=== PATIENT | male | born 1950 | race Caucasian/White ===

== ENCOUNTER 2018-03-08 15:54 | Inpatient (IN) | payer OTHER, MEDICAID, MEDICARE ==
[2018-03-08] VITALS (11 sets, daily range): BP systolic 118–155; BP diastolic 65–97; PULSE 85–148; RESP 14–24; TEMP 98.5; O2SAT 93–99
[~2018-03-08] VITALS: Ht 170.2 cm; Wt 80.1 kg
--- NOTE | 2018-03-08 16:21 | PD ---
HPI Chief Complaint: Cardiac Complaint Time Seen by Provider: 16:12 Travel History International Travel<30 days: No Contact w/Intl Traveler<30days: No Traveled to known affect area: No History of Present Illness HPI Patient is a 67-year-old male who presents emergency department for evaluation of elevated heart rate. Patient has a history of hemodialysis dependence was at hemodialysis today and they noticed he had an elevated heart rate, they referred him here. The patient adamant that he does not have a history of arrhythmia atrial fibrillation he is not anticoagulated. He does however take Cardizem. Denies any chest pain shortness of breath abdominal pain nausea vomiting. States symptoms are moderate, started today, context and associated signs and symptoms as above. PFSH Past Medical History Narrative Medical End-stage renal disease, dialysis dependence, diabetes, depression, hypercholesterolemia Past Surgical History Narrative Surgical AV fistula Social History Alcohol Use: No Tobacco Use: No Allergies-Medications (Allergen,Severity, Reaction): Coded Allergies: iron (Verified Allergy, Unknown, 03/08/18) Review of Systems Except as stated in HPI: all other systems reviewed are Neg Physical Exam Narrative GENERAL: Well-developed well-nourished no obvious distress. SKIN: Focused skin assessment warm/dry. Right sided dialysis catheter subclavian clean dry and intact peer HEAD: Atraumatic. Normocephalic. EYES: Pupils equal and round. No scleral icterus. No injection or drainage. ENT: No nasal bleeding or discharge. Mucous membranes pink and moist. NECK: Trachea midline. No JVD. CARDIOVASCULAR: Irregularly irregular with tachycardic with heart rates as high as 150. No murmur appreciated. RESPIRATORY: No accessory muscle use. Clear to auscultation. Breath sounds equal bilaterally. GASTROINTESTINAL: Abdomen soft, non-tender, nondistended. Hepatic and splenic margins not palpable. MUSCULOSKELETAL: No obvious deformities. No clubbing. No cyanosis. No edema. NEUROLOGICAL: Awake and alert. No obvious cranial nerve deficits. Motor grossly within normal limits. Normal speech. PSYCHIATRIC: Appropriate mood and affect; insight and judgment normal. Data Data Last Documented VS Vital Signs Date Time Temp Pulse Resp B/P (MAP) Pulse Ox O2 Delivery O2 Flow Rate FiO2 03/08/18 17:30 108 14 139/65 (89) 98 Nasal Cannula 2.00 Orders Orders Electrocardiogram (03/08/18 16:16) Basic Metabolic Panel (Bmp) (03/08/18 16:16) Ckmb (Isoenzyme) Profile (03/08/18 16:16) Complete Blood Count With Diff (03/08/18 16:16) Magnesium (Mg) (03/08/18 16:16) Prothrombin Time / Inr (Pt) (03/08/18 16:16) Act Partial Throm Time (Ptt) (03/08/18 16:16) Troponin I (03/08/18 16:16) Ecg Monitoring (03/08/18 16:16) Bilateral Bp Monitoring (03/08/18 16:16) Iv Access Insert/Monitor (03/08/18 16:16) Oximetry (03/08/18 16:16) Oxygen Administration (03/08/18 16:16) Chest, Pa & Lat (03/08/18 16:16) Diltiazem (Cardizem) (03/08/18 16:30) CKMB (03/08/18 16:20) CKMB% (03/08/18 16:20) Metoprolol Tartrate Inj (Lopressor Inj) (03/08/18 17:45) Admit Order (Ed Use Only) (03/08/18 ) Metoprolol Tartrate (Lopressor) (03/08/18 21:00) Diltiazem Cd (Cardizem Cd) (03/09/18 09:00) Aspirin Ec (Ecotrin Ec) (03/09/18 09:00) Pravastatin (Pravachol) (03/09/18 09:00) Furosemide (Lasix) (03/09/18 09:00) Place In Observation (03/08/18 ) Vital Signs (Adult) Q4H (03/08/18 19:11) Activity Oob With Assistance (03/08/18 19:11) Auxiliary Equipment Tender / Telemetry .CONTINUOUS (03/08/18 19:11) Intake + Output [place].QSHIFT (03/08/18 19:11) Diet Heart Healthy (03/09/18 Breakfast) Sodium Chloride 0.9% Flush (Ns Flush) (03/08/18 19:15) Sodium Chloride 0.9% Flush (Ns Flush) (03/08/18 21:00) Metoclopramide Inj (Reglan Inj) (03/08/18 19:15) Comprehensive Metabolic Panel (03/09/18 06:00) Complete Blood Count With Diff (03/09/18 06:00) Troponin I (03/09/18 00:00) Troponin I (03/09/18 06:00) Pt Request For Service (03/08/18 19:11) Case Management Consult (03/08/18 19:11) Heparin Inj (Heparin Inj) (03/09/18 09:00) Acetaminophen (Tylenol) (03/08/18 19:15) Acetamin-Hydrocod 325-5 Mg ([place] 5-325 (03/08/18 19:15) Morphine Inj (Morphine Inj) (03/08/18 19:15) Docusate Sodium-Senna (Lilli-Colace) (03/08/18 21:00) Magnesium Hydroxide Liq (Milk Of Magnesi (03/08/18 19:15) Sennosides (Senokot) (03/08/18 19:15) Bisacodyl Supp (Dulcolax Supp) (03/08/18 19:15) Lactulose Liq (Lactulose Liq) (03/08/18 19:15) Echo 2d Comp With Doppler (03/08/18 ) Consult Cardiology (03/08/18 ) Labs Laboratory Tests Test 03/08/18 16:20 White Blood Count 7.9 TH/MM3 Red Blood Count 3.75 MIL/MM3 Hemoglobin 11.0 GM/DL Hematocrit 33.6 % Mean Corpuscular Volume 89.7 FL Mean Corpuscular Hemoglobin 29.3 PG Mean Corpuscular Hemoglobin Concent 32.7 % Red Cell Distribution Width 19.6 % Platelet Count 244 TH/MM3 Mean Platelet Volume 7.6 FL Neutrophils (%) (Auto) 73.6 % Lymphocytes (%) (Auto) 10.2 % Monocytes (%) (Auto) 12.4 % Eosinophils (%) (Auto) 3.3 % Basophils (%) (Auto) 0.5 % Neutrophils # (Auto) 5.8 TH/MM3 Lymphocytes # (Auto) 0.8 TH/MM3 Monocytes # (Auto) 1.0 TH/MM3 Eosinophils # (Auto) 0.3 TH/MM3 Basophils # (Auto) 0.0 TH/MM3 CBC Comment DIFF FINAL Differential Comment Prothrombin Time 11.4 SEC Prothromb Time International Ratio 1.1 RATIO Activated Partial Thromboplast Time 26.9 SEC Blood Urea Nitrogen 38 MG/DL Creatinine 2.99 MG/DL Random Glucose 171 MG/DL Calcium Level 8.3 MG/DL Magnesium Level 1.8 MG/DL Sodium Level 136 MEQ/L Potassium Level 4.0 MEQ/L Chloride Level 98 MEQ/L Carbon Dioxide Level 28.4 MEQ/L Anion Gap 10 MEQ/L Estimat Glomerular Filtration Rate 21 ML/MIN Total Creatine Kinase 158 U/L Creatine Kinase MB 11.7 NG/ML Troponin I 0.12 NG/ML [facility] Medical Decision Making Medical Screen Exam Complete: Yes Emergency Medical Condition: Yes Interpretation(s) EKG shows atrial fibrillation with RVR with a heart rate of 131, borderline right axis deviation, no concerning ST segment changes seen. This an abnormal EKG. Differential Diagnosis Atrial fibrillation, ACS, VA, electrolyte abnormality. Narrative Course Patient room to the emergency department, a dose of p.o. Cardizem was given his IV Cardizem is currently out of stock on nationwide shortage, this had minimal effect in controlling his heart rate, dose of IV metoprolol was given which did have fair success controlling his heart rate in the low 100s and high 90s. He has not had any chest pain however does have a slightly positive troponin of 0.12 without previous comparison. Patient tells me he does not follow with a singer back tender and had a last stress test about 2 years ago. Presumably this is new onset atrial fibrillation according the patient however he does have Cardizem on his medication list and I doubt the accuracy of this history. Still for his safety he will be admitted under observation status for Dr. Hoffman for further workup and monitoring. Patient was discussed with Dr. Hoffman and she agreed. Diagnosis Primary Impression: Atrial fibrillation with RVR Admitting Information Admitting Physician Requests: Observation Condition: Stable Erik Peraza MD March 08, 2018 16:21
[2018-03-08] MEDS ORDERED: DILTIAZEM HCL 30 MG TAB PO ONE (16:30)
[2018-03-08 17:03] LABS: AUTOMATED NEUTROPHIL # 5.8 TH/MM3 (1.8-7.7); BASOPHIL % 0.5 % (0.0-2.0); EOSINOPHIL # 0.3 TH/MM3 (0-0.4); EOSINOPHIL % 3.3 % (0.0-4.0); HEMATOCRIT 33.6 % (39.0-51.0); LYMPH % 10.2 % (9.0-44.0); LYMPHOCYTE # 0.8 TH/MM3 (1.0-4.8); MEAN CELL VOLUME 89.7 FL (80.0-100.0); MEAN CORPUSCULAR HEMOGLOBIN 29.3 PG (27.0-34.0); MEAN CORPUSCULAR HGB CONC 32.7 % (32.0-36.0); MEAN PLATELET VOLUME 7.6 FL (7.0-11.0); MONO % 12.4 % (0.0-8.0); NEUT % 73.6 % (16.0-70.0); PLATELET COUNT 244 TH/MM3 (150-450); RED BLOOD COUNT 3.75 MIL/MM3 (4.50-5.90); RED CELL DISTRIBUTION WIDTH 19.6 % (11.6-17.2); WHITE BLOOD COUNT 7.9 TH/MM3 (4.0-11.0)
[2018-03-08 17:12] LABS: INTERNATIONAL NORMALIZED RATIO 1.1 RATIO; PROTHROMBIN TIME - PATIENT 11.4 SEC (9.8-11.6)
--- NOTE | 2018-03-08 17:18 | RADRPT ---
EXAM DATE/TIME: 03/08/2018 17:06 [place] COMPARISON: No previous studies available for comparison. INDICATIONS : Rapid heart rate. MEDICAL HISTORY : Dialysis SURGICAL HISTORY : None. ENCOUNTER: Initial ACUITY: 1 day PAIN SCORE: 6/10 LOCATION: Bilateral chest FINDINGS: PA and lateral views of the chest demonstrate cardiomegaly with increase in pulmonary vascularity. Ri ght pleural effusion. Right-sided vascular catheter with tip in the right atrium. Osseous structures are intact. CONCLUSION: 1. Cardiomegaly with increase in pulmonary vascularity. 2. Right pleural effusion. Elias Jj MD on March 08, 2018 at 17:15 Board Certified Radiologist. This report was verified electronically.
[2018-03-08 17:22] LABS: BICARBONATE 28.4 MEQ/L (21.0-32.0); BLOOD UREA NITROGEN 38 MG/DL (7-18); CALCIUM 8.3 MG/DL (8.5-10.1); CHLORIDE 98 MEQ/L (98-107); CREATININE 2.99 MG/DL (0.60-1.30); GLOMERULAR FILTRATION RATE 21 ML/MIN (>89); GLUCOSE,RANDOM 171 MG/DL (74-106); MAGNESIUM 1.8 MG/DL (1.5-2.5); SODIUM (NA) 136 MEQ/L (136-145)
[2018-03-08 17:26] LABS: TROPONIN I 0.12 NG/ML (0.02-0.05)
[2018-03-08] MEDS ORDERED: METOPROLOL TARTRATE 5 MG/5 ML VIAL IV PUSH ONE (17:45)
[2018-03-08] MEDS ORDERED: BISACODYL 10 MG SUPP RECTAL PRN (19:15)
[2018-03-08] MEDS ORDERED: SODIUM CHLORIDE 0.9% FLUSH 10 ML FLUSH IV FLUSH PRN (19:15)
[2018-03-08] MEDS ORDERED: ACETAMINOPHEN/HYDROcodone 325 MG/5 MG TAB PO PRN (19:15)
[2018-03-08] MEDS ORDERED: SENNOSIDES 8.6 MG TAB PO PRN (19:15)
[2018-03-08] MEDS ORDERED: METOCLOPRAMIDE HCL 10 MG/2 ML VIAL IV PUSH PRN (19:15)
[2018-03-08] MEDS ORDERED: LACTULOSE SYRUP 20 GM/30 ML CUP PO PRN (19:15)
[2018-03-08] MEDS ORDERED: MAGNESIUM HYDROXIDE SUSP 30 ML CUP PO PRN (19:15)
[2018-03-08] MEDS ORDERED: ACETAMINOPHEN 325 MG TAB PO PRN (19:15)
--- NOTE | 2018-03-08 19:26 | HHI.HP ---
[facility] No Primary Care Physician Admission Diagnosis Afib Rvr, elevated troponin. Diagnoses: (1) Atrial fibrillation with RVR Diagnosis: Principal (2) Elevated troponin Diagnosis: Principal (3) ESRD on hemodialysis Diagnosis: Principal Travel History International Travel<30 Days: No Contact w/Intl Traveler <30 Da: No Traveled to Known Affected Are: No History of Present Illness This is a 67-year-old male with a PMH of HTN, ESRD on HD T/Th/Sat and h/o A-fib who was sent to the ER from Dialysis for HR 140-150's w/ associated SOB. No c/ o chest pain. Upon arrival, noted to be in A-fib w/ RVR. Pt reports no previous h/o A-fib, however per review of medication list pt on Cardizem and Metoprolol at home. BP 143/85, HR 148, O2 sat 95% RA. CBC essentially unremarkable. Creatinine 2.99, no previous labs for comparison. Troponin 0.12. INR 1.1. CXR with cardiomegaly and increased pulmonary vascularity, right pleural effusion. S/p Cardizem 30mg po and Lopressor 5mg IV in ER, HR currently 90's. Review of Systems Except as stated in HPI: all other systems reviewed are Neg ROS: 14 point review of systems otherwise negative. Past Family Social History Past Medical History PMH: HTN, ESRD on HD T/Th/Sat and h/o A-fib Past Surgical History PAST SURGICAL HISTORY: AV Shunt, Right Foot Toe Amputation Allergies: Coded Allergies: iron (Verified Allergy, Unknown, 03/08/18) Family History PAST FAMILY HISTORY: Reviewed. No h/o DM or CAD Social History PAST SOCIAL HISTORY: Negative for alcohol, tobacco or drugs per Physical Exam Vital Signs Vital Signs Date Time Temp Pulse Resp B/P (MAP) Pulse Ox O2 Delivery O2 Flow Rate FiO2 03/08/18 17:30 108 14 139/65 (89) 98 Nasal Cannula 2.00 03/08/18 17:00 20 142/87 (105) 98 Nasal Cannula 2.00 03/08/18 16:33 126 24 155/97 (116) 99 Nasal Cannula 2.00 03/08/18 16:27 143/85 (104) 03/08/18 16:25 93 Room Air 03/08/18 16:25 Nasal Cannula 2.00 03/08/18 16:12 148 20 143/85 (104) 95 Physical Exam PE: GENERAL: Middle-aged white male in no acute distress. HEENT: PERRLA, EOMI. No scleral icterus or conjunctival pallor. No lid lag or facial droop. CARDIOVASCULAR: Irregularly irregular, and A. fib, HR 90s. No obvious murmurs to auscultation. No chest tenderness to palpation. RESPIRATORY: No obvious rhonchi or wheezing. Clear to auscultation. Breath sounds equal bilaterally. GASTROINTESTINAL: Abdomen soft, non-tender, nondistended. BS normal. MUSCULOSKELETAL: Extremities without clubbing, cyanosis, or edema. No obvious deformities. NEUROLOGICAL: Awake, alert. No focal neurologic deficits. Moving both upper and lower extremities spontaneously. Laboratory Laboratory Tests Test 03/08/18 16:20 White Blood Count 7.9 Red Blood Count 3.75 Hemoglobin 11.0 Hematocrit 33.6 Mean Corpuscular Volume 89.7 Mean Corpuscular Hemoglobin 29.3 Mean Corpuscular Hemoglobin Concent 32.7 Red Cell Distribution Width 19.6 Platelet Count 244 Mean Platelet Volume 7.6 Neutrophils (%) (Auto) 73.6 Lymphocytes (%) (Auto) 10.2 Monocytes (%) (Auto) 12.4 Eosinophils (%) (Auto) 3.3 Basophils (%) (Auto) 0.5 Neutrophils # (Auto) 5.8 Lymphocytes # (Auto) 0.8 Monocytes # (Auto) 1.0 Eosinophils # (Auto) 0.3 Basophils # (Auto) 0.0 CBC Comment DIFF FINAL Differential Comment Prothrombin Time 11.4 Prothromb Time International Ratio 1.1 Activated Partial Thromboplast Time 26.9 Blood Urea Nitrogen 38 Creatinine 2.99 Random Glucose 171 Calcium Level 8.3 Magnesium Level 1.8 Sodium Level 136 Potassium Level 4.0 Chloride Level 98 Carbon Dioxide Level 28.4 Anion Gap 10 Estimat Glomerular Filtration Rate 21 Total Creatine Kinase 158 Creatine Kinase MB 11.7 Troponin I 0.12 Result Diagram: 03/08/18 1620 03/08/18 1620 Caprini VTE Risk Assessment Caprini VTE Risk Assessment: No/Low Risk (score <= 1) Caprini Risk Assessment Model Point Value = 1 Point Value = 2 Point Value = 3 Point Value = 5 Age 41-60 Minor surgery BMI > 25 kg/m2 Swollen legs Varicose veins or History of unexplained or recurrent spontaneous Oral contraceptives or hormone replacement Sepsis (< 1 month) Serious lung disease, including pneumonia (< 1 month) Abnormal pulmonary function Acute myocardial infarction Congestive heart failure (< 1 month) History of inflammatory bowel disease Medical patient at bed rest Age 61-74 Arthroscopic surgery Major open surgery (> 45 min) Laparoscopic surgery (> 45 min) Malignancy Confined to bed (> 72 hours) Immobilizing plaster cast Central venous access Age >= 75 History of VTE Family history of VTE Factor V Leiden Prothrombin [id number] Lupus anticoagulant Anticardiolipin antibodies Elevated serum homocysteine Heparin-induced thrombocytopenia Other congenital or acquired thrombophilia Stroke (< 1 month) Elective arthroplasty Hip, pelvis, or leg fracture Acute spinal cord injury (< 1 month) Prophylaxis Regimen Total Risk Factor Score Risk Level Prophylaxis Regimen 0-1 Low Early ambulation 2 Moderate Order ONE of the following: *Sequential Compression Device (SCD) *Heparin 5000 units SQ BID 3-4 Higher Order ONE of the following medications: *Heparin 5000 units SQ TID *Enoxaparin/Lovenox 40 mg SQ daily (WT < 150 kg, CrCl > 30 mL/min) *Enoxaparin/Lovenox 30 mg SQ daily (WT < 150 kg, CrCl > 10-29 mL/min) *Enoxaparin/Lovenox 30 mg SQ BID (WT < 150 kg, CrCl > 30 mL/min) AND/OR *Sequential Compression Device (SCD) 5 or more Highest Order ONE of the following medications: *Heparin 5000 units SQ TID (Preferred with Epidurals) *Enoxaparin/Lovenox 40 mg SQ daily (WT < 150 kg, CrCl > 30 mL/min) *Enoxaparin/Lovenox 30 mg SQ daily (WT < 150 kg, CrCl > 10-29 mL/min) *Enoxaparin/Lovenox 30 mg SQ BID (WT < 150 kg, CrCl > 30 mL/min) AND *Sequential Compression Device (SCD) Assessment and Plan Problem List: (1) Atrial fibrillation with RVR ICD Code: I48.91 - Unspecified atrial fibrillation Status: Acute (2) Elevated troponin ICD Code: R74.8 - Abnormal levels of other serum enzymes (3) ESRD on hemodialysis ICD Code: N18.6 - End stage renal disease; Z99.2 - Dependence on renal dialysis Assessment and Plan A/P: 1. A-fib w/ RVR: apparent h/o A-fib, however pt unaware of diagnosis, on Cardizem PO and Metoprolol PO per review of medication list, HR 150's while in dialysis, s/p Cardizem 30mg po and Lopressor 5mg IV in ER, HR now 90's. Admit for Observation, telemetry, continue home Cardizem 120mg po qd and Metoprolol 25mg bid, monitor BP. Check Echo to eval for valvular abnormalities. Cardio Consult for further evaluation/recommendations. 2. Elevated Trop: likely secondary to renal dysfunction in combination w/ tachyarrhythmia, no c/o chest pain, no evidence of ischemia. Check serial cardiac enzymes, check Hgb A1c, check lipid profile, start ASA, Statin, resume home Metoprolol. Cardio eval as above. 3. ESRD on HD: T//Sat, follows w/ Dr. Ch, had approx 1L fluid taken off today but HD incomplete per report, will consult Nephrology to resume HD as needed. 4. DVT Prophylaxis: Heparin sq 5. Social work for d/c planning as needed. 6. Case discussed w/ ER physician at length, labs/records/imaging reviewed by me. Jackie Hoffman MD March 08, 2018 19:25
[2018-03-08] MEDS ORDERED: MORPHINE SULFATE 4 MG/ML INJ IV PRN (19:45)
[2018-03-08] MEDS ORDERED: LORA-650 PO (20:59)
[2018-03-08] MEDS ORDERED: LAC-LOT2 (20:59)
[2018-03-08] MEDS ORDERED: NEPHTAB3 PO (20:59)
[2018-03-08] MEDS ORDERED: TYLETAB34 PO (20:59)
[2018-03-08] MEDS ORDERED: ATOR40TA16 PO (20:59)
[2018-03-08] MEDS ORDERED: ASCO500C (20:59)
[2018-03-08] MEDS ORDERED: SEVE800 PO (20:59)
[2018-03-08] MEDS ORDERED: TYLE325T PO (20:59)
[2018-03-08] MEDS ORDERED: CART120C PO (20:59)
[2018-03-08] MEDS ORDERED: VENTAER INH (20:59)
[2018-03-08] MEDS ORDERED: MEGE40SU PO (20:59)
[2018-03-08] MEDS ORDERED: IPRASOL INH ×2 (20:59)
[2018-03-08] MEDS ORDERED: MILKSUS PO (20:59)
[2018-03-08] MEDS ORDERED: NOVOLOGP2 SQ (20:59)
[2018-03-08] MEDS ORDERED: GLYC3350 (20:59)
[2018-03-08] MEDS ORDERED: LEVEMIR SQ ×2 (20:59)
[2018-03-08] MEDS ORDERED: TRAZ100T10 PO (20:59)
[2018-03-08] MEDS ORDERED: TAMS5CAP PO (20:59)
[2018-03-08] MEDS ORDERED: BUME1TAB PO (20:59)
[2018-03-08] MEDS: DOCUSATE SODIUM 50 MG/SENNA 8.6 MG TAB PO SCH (21:00)
[2018-03-08] MEDS: METOPROLOL TARTRATE 25 MG TAB PO SCH (21:00)
[2018-03-08] MEDS ORDERED: ACETAMINOPHEN/CODEINE 300 MG/30 MG TAB PO PRN (22:45)
[2018-03-08] MEDS ORDERED: ATORVASTATIN 40 MG TAB PO SCH (22:45)
[2018-03-08] MEDS ORDERED: DEXTROSE 50% IN WATER 50 ML VIAL(D50) IV PUSH PRN (23:00)
[2018-03-08] MEDS ORDERED: GLUCAGON 1 MG/ML VIAL OTHER PRN (23:00)
[2018-03-08] MEDS: traZODone HCL 100 MG TAB PO SCH (23:52)
[2018-03-08] MEDS: TAMSULOSIN HCL 0.4 MG CAP PO SCH (23:53)
[2018-03-08] MEDS: SODIUM CHLORIDE 0.9% FLUSH 10 ML FLUSH IV FLUSH SCH (23:54)
[2018-03-09] VITALS (10 sets, daily range): BP systolic 108–124; BP diastolic 57–65; PULSE 78–99; RESP 17–20; TEMP 98.1–99.2; O2SAT 92–96
[2018-03-09 05:52] LABS: ALBUMIN 2.1 GM/DL (3.4-5.0); ALKALINE PHOSPHATASE 45 U/L (45-117); ALT (GPT) 20 U/L (12-78); AST (GOT) 23 U/L (15-37); BICARBONATE 28.1 MEQ/L (21.0-32.0); BLOOD UREA NITROGEN 51 MG/DL (7-18); CHLORIDE 100 MEQ/L (98-107); CHOLESTEROL 55 MG/DL (120-200); CHOLESTEROL/ HDL RATIO 2.21 RATIO; GLOMERULAR FILTRATION RATE 15 ML/MIN (>89); GLUCOSE,RANDOM 137 MG/DL (74-106); HDL CHOLESTEROL 24.8 MG/DL (40.0-60.0); LDL CHOLESTEROL 15 MG/DL (0-99); SODIUM (NA) 139 MEQ/L (136-145); TOTAL BILIRUBIN ADULT 0.3 MG/DL (0.2-1.0); TOTAL PROTEIN 6.4 GM/DL (6.4-8.2); TRIGLYCERIDES 77 MG/DL (42-150)
[2018-03-09 05:55] LABS: TROPONIN I 0.89 NG/ML (0.02-0.05)
[2018-03-09 07:12] LABS: AUTOMATED NEUTROPHIL # 4.3 TH/MM3 (1.8-7.7); BASOPHIL # 0.1 TH/MM3 (0-0.2); BASOPHIL % 0.8 % (0.0-2.0); EOSINOPHIL # 0.3 TH/MM3 (0-0.4); EOSINOPHIL % 4.7 % (0.0-4.0); HEMATOCRIT 29.2 % (39.0-51.0); HEMOGLOBIN 9.6 GM/DL (13.0-17.0); LYMPHOCYTE # 0.9 TH/MM3 (1.0-4.8); MEAN CELL VOLUME 89.1 FL (80.0-100.0); MEAN CORPUSCULAR HEMOGLOBIN 29.3 PG (27.0-34.0); MEAN PLATELET VOLUME 7.5 FL (7.0-11.0); MONO % 14.3 % (0.0-8.0); MONOCYTE # 0.9 TH/MM3 (0-0.9); NEUT % 66.2 % (16.0-70.0); PLATELET COUNT 227 TH/MM3 (150-450); RED BLOOD COUNT 3.28 MIL/MM3 (4.50-5.90); RED CELL DISTRIBUTION WIDTH 19.3 % (11.6-17.2); WHITE BLOOD COUNT 6.5 TH/MM3 (4.0-11.0)
[2018-03-09] MEDS: INSULIN ASPART SUPPLEMENTAL SCALE SQ SCH ×4 (08:00→22:19)
[2018-03-09] MEDS: MEGESTROL ACETATE SUSP 400 MG/10 ML CUP PO SCH (08:15)
[2018-03-09] MEDS: DILTIAZEM-CD 120 MG CAP ER PO SCH (08:16)
[2018-03-09] MEDS: DOCUSATE SODIUM 50 MG/SENNA 8.6 MG TAB PO SCH ×2 (08:16→21:00)
[2018-03-09] MEDS: LORATADINE 10 MG TAB PO SCH (08:16)
[2018-03-09] MEDS: FUROSEMIDE 40 MG TAB PO SCH (08:17)
[2018-03-09] MEDS: PRAVASTATIN SOD 40 MG TAB PO SCH (08:17)
[2018-03-09] MEDS: METOPROLOL TARTRATE 25 MG TAB PO SCH ×2 (08:17→22:08)
[2018-03-09] MEDS: ASPIRIN EC 81 MG TABEC PO SCH (08:18)
[2018-03-09] MEDS: HEPARIN SODIUM - SQ 10,000 UNITS/ML VIAL SQ SCH ×2 (08:18→22:09)
[2018-03-09] MEDS: VITAMIN B CMPLX/VITC/FOLIC AC CAP PO SCH (08:20)
[2018-03-09] MEDS: SODIUM CHLORIDE 0.9% FLUSH 10 ML FLUSH IV FLUSH SCH ×2 (08:21→22:08)
[2018-03-09] MEDS: INSULIN DETEMIR 100 UNITS/ML VIAL SQ SCH ×2 (08:28→22:15)
[2018-03-09] MEDS: SEVELAMER CARBONATE 800 MG TAB PO SCH ×3 (08:28→16:21)
--- NOTE | 2018-03-09 09:03 | HHI.PR ---
Subjective Remarks He is at the margin of the bed. Some sob. No chest pain . No lightheadedness. No n/v/d/c. Objective Vitals Vital Signs Date Time Temp Pulse Resp B/P (MAP) Pulse Ox O2 Delivery O2 Flow Rate FiO2 03/09/18 06:16 Room Air 03/09/18 06:16 98.5 78 18 124/62 (82) 96 03/09/18 03:51 85 03/09/18 00:01 98.6 89 19 122/65 (84) 96 03/09/18 00:01 Room Air 03/08/18 23:39 95 03/08/18 21:37 98 03/08/18 20:59 03/08/18 20:01 Room Air 03/08/18 20:01 98.5 86 19 118/82 (94) 97 03/08/18 19:59 96 15 129/66 (87) 97 Nasal Cannula 2.00 03/08/18 17:30 108 14 139/65 (89) 98 Nasal Cannula 2.00 03/08/18 17:00 20 142/87 (105) 98 Nasal Cannula 2.00 03/08/18 16:33 126 24 155/97 (116) 99 Nasal Cannula 2.00 03/08/18 16:27 143/85 (104) 03/08/18 16:25 93 Room Air 03/08/18 16:25 Nasal Cannula 2.00 03/08/18 16:12 148 20 143/85 (104) 95 I/O 03/08/18 03/08/18 03/08/18 03/09/18 03/09/18 03/09/18 07:00 15:00 23:00 07:00 15:00 23:00 Intake Total 480 ml Output Total 0 ml Balance 480 ml Intake Oral 480 ml Output Urine Total 0 ml # Bowel Movements 0 Result Diagram: 03/09/18 0435 03/09/18 0435 Imaging Last Impressions Chest X-Ray 03/08/18 1616 Signed Impressions: Service Date/Time: Thursday, March 08, 2018 17:06 - CONCLUSION: 1. Cardiomegaly with increase in pulmonary vascularity. 2. Right pleural effusion. Elias Jj MD Objective Remarks GENERAL: Pleasant middle-aged white male in no acute distress. HEENT: PERRLA, EOMI. No scleral icterus or conjunctival pallor. No lid lag or facial droop. CARDIOVASCULAR: Irregularly irregular. No murmurs. No chest tenderness to palpation. RESPIRATORY: Clear to auscultation. Breath sounds equal bilaterally. GASTROINTESTINAL: Abdomen soft, non-tender, nondistended. BS normal x4Q. NEUROLOGICAL: Awake, alert. No focal neurologic deficits. Normal speech. A/P Problem List: (1) Atrial fibrillation with RVR ICD Code: I48.91 - Unspecified atrial fibrillation Status: Acute (2) Elevated troponin ICD Code: R74.8 - Abnormal levels of other serum enzymes (3) ESRD on hemodialysis ICD Code: N18.6 - End stage renal disease; Z99.2 - Dependence on renal dialysis Assessment and Plan A-fib w/ RVR: apparent h/o A-fib, however pt unaware of diagnosis, on Cardizem PO and Metoprolol PO per review of medication list, HR 150's while in dialysis Received Cardizem 30mg po and Lopressor 5mg IV in ER, HR better controlled. Monitor on telemetry Continue home Cardizem 120mg po qd and Metoprolol 25mg bid, monitor BP. 2D Echo to eval for valvular abnormalities. Cardio Consult for further evaluation/recommendations. Elevated Trop: likely secondary to renal dysfunction in combination with tachyarrhythmia, no c/o chest pain, no evidence of ischemia. Check serial cardiac enzymes, check Hgb A1c, check lipid profile Continue ASA, Statin, Metoprolol. Cardiology consulted ESRD on HD: T//Sat, follows w/ Dr. Ch, had approx 1L fluid taken off today but HD incomplete per report, will consult Nephrology to resume HD as needed. DVT Prophylaxis: Heparin sq CM consulted for DC planning as needed. Discussed with the patient, nurse Debi Mosqueda MD March 09, 2018 09:03
[2018-03-09] MEDS ORDERED: SODIUM CHLOR 0.9% 1000 ML INJ 1,000 ML OTHER PRN ×2 (10:48)
[2018-03-09] MEDS ORDERED: SODIUM CHLOR 0.9% 1000 ML INJ 1,000 ML IV PRN (10:48)
[2018-03-09] MEDS ORDERED: diphenhydrAMINE HCL 25 MG CAP PO PRN (11:00)
[2018-03-09] MEDS ORDERED: GELATIN 12 MM/7 MM FOAM TOP PRN (11:00)
[2018-03-09] MEDS ORDERED: NITROGLYCERIN 0.4 MG SL 25 TABS/BTL SL PRN (11:00)
[2018-03-09] MEDS ORDERED: MANNITOL 12.5 GM/50 ML VIAL IV PRN (11:00)
[2018-03-09] MEDS ORDERED: HEPARIN SODIUM - IV 10,000 UNITS/10 ML VIAL IV FLUSH PRN (11:00)
[2018-03-09] MEDS ORDERED: ACETAMINOPHEN 325 MG TAB PO PRN (11:00)
[2018-03-09] MEDS ORDERED: cloNIDine HCL 0.1 MG TAB PO PRN (11:00)
[2018-03-09] MEDS ORDERED: SODIUM CHLORIDE 0.9% FLUSH 10 ML FLUSH IV FLUSH PRN (11:00)
[2018-03-09] MEDS ORDERED: ALBUMIN 25% INJ 100 ML IV PRN (11:00)
[2018-03-09] MEDS ORDERED: ONDANSETRON ODT 4 MG TAB PO PRN (11:00)
[2018-03-09 11:30] LABS: HEMOGLOBIN A1C 6.4 % (4.3-6.0)
[2018-03-09] MEDS: GENTAMICIN SULFATE 20 MG/2 ML VIAL OTHER PRN (12:37)
[2018-03-09] MEDS: HEPARIN SODIUM - IV 10,000 UNITS/10 ML VIAL PRN (12:38)
--- NOTE | 2018-03-09 13:13 | MB ---
cc: Jerrell Newman MD DATE: 03/09/2018 REASON FOR CONSULTATION: End-stage renal disease management. HISTORY OF PRESENT ILLNESS: This is a 67-year-old male with a history of hypertension, ESRD, on hemodialysis, Tuesdays, , and Saturday. He is followed up with Dr. Ch as an outpatient. The patient also has a previous history of atrial fibrillation. The patient was apparently at his outpatient dialysis on Saturday when he developed a heart rate jumping up to the 140s and 150s with dyspnea. He received approximately 1 hour of dialysis at that time and had approximately 1 liter of fluid removed. The patient was brought to the emergency room for evaluation. Upon arrival, he was found to have atrial fibrillation with RVR and this was treated medically with Cardizem and Lopressor in the ER, his heart rate improved otherwise. The patient had some elevation in troponin with a troponin level up to 0.89 and he was admitted for further evaluation. Given that he had a partial hemodialysis treatment, I went ahead and ordered for hemodialysis today. The patient is resting comfortably and tolerating hemodialysis at this time. His electrolytes and volume status otherwise stable. Cardiology has been consulted for further evaluation of his atrial fibrillation as well as elevated troponins. The patient has no acute complaints at this time. REVIEW OF SYSTEMS: The patient had some initial shortness of breath and some initial chest pains, which have improved at this time. Otherwise, no dizziness or loss of consciousness. At this time, he is tolerating dialysis well. Review of systems otherwise negative. PAST MEDICAL HISTORY: Includes hypertension, ESRD, on hemodialysis, Tuesdays, , and Saturdays, history of atrial fibrillation. PAST SURGICAL HISTORY: Includes left upper extremity AV fistula created approximately 2-3 months ago. The patient with a current right IJ tunnel catheter. The patient with previous right foot amputation. ALLERGIES: IODINE ALLERGIES. FAMILY HISTORY: No history of diabetes or CAD. SOCIAL HISTORY: No alcohol, tobacco or drug use. PHYSICAL EXAMINATION: At the time of evaluation. VITAL SIGNS: Temperature 98.1, pulse 91, blood pressure 114/61, pulse oximetry 93%. NECK: Soft, supple, no lymphadenopathy. CARDIAC: Irregularly, irregular. No murmurs, rubs, gallops. LUNGS: Clear to auscultation. ABDOMEN: Soft, nontender, nondistended. EXTREMITIES: No edema. LABORATORY DATA: Sodium 139, potassium 4.6, chloride 100, bicarbonate 28.1, BUN 51, creatinine 4, glucose 137. Troponin 0.12, then 0.86 and 0.89, albumin 2.1. White count 6.5, hemoglobin 9.6, hematocrit 29.2 with a platelet count of 227. ASSESSMENT AND PLAN: 1. End-stage renal disease on hemodialysis. The patient is on dialysis, Tuesdays, and Saturdays and follows up as an outpatient with Dr. Ch. He had only a partial treatment of dialysis on Saturday when he was transferred to the hospital for atrial fibrillation with RVR. At this time, the patient is receiving dialysis today. He is tolerating dialysis well. His volume status and electrolytes are otherwise stable. We will do dialysis today and then plan for next dialysis on Saturday and continue with Saturday, , Saturday dialysis while here. Of note, the patient has a current right IJ tunnel catheter. He has a left upper extremity AV fistula with an excellent thrill. This looks like attempts have been made to start cannulation of the fistula at outpatient dialysis; however, while inpatient can use current right IJ tunnel catheter. Continue monitoring and protect left arm. 2. Atrial fibrillation with rapid ventricular response. The patient presented with apparent heart rate in the 140s to 150s. This was treated in the ER with Cardizem and Lopressor. At this time, he continues on p.o. medication with Cardizem and metoprolol. His heart rate has improved to the 90s. Cardiology has been consulted for further evaluation. In addition, the patient had some elevation in troponins. He has no active chest pain symptoms at this time. His troponin elevation may have been due to the RPR, however, continue followup with cardiology. 3. Hypertension. Blood pressure is stable. Continue with medications. MD MICHAEL Keane/MARLENE , 12:17 PM , 01:12 PM LAURA
--- NOTE | 2018-03-09 15:23 | MB ---
cc: Reji Fabian DO DATE: 03/09/2018 REASON FOR CONSULTATION: Atrial fibrillation with rapid ventricular response, elevated troponin. HISTORY OF PRESENT ILLNESS: Memo Perla is a pleasant 67-year-old male who presented to [facility] Emergency Room from dialysis due to atrial fibrillation with rapid ventricular response. He was getting his normal dialysis and he had this for about an hour and he was noted to be in atrial fibrillation with a heart rate of 140-150 beats per minute. Per the notes, he was short of breath, although he states that he had no chest pain or shortness of breath, but was somewhat lightheaded. Because of this, his dialysis was cut short, and he was brought to the emergency room for evaluation. While there, he was given Cardizem and Lopressor and his heart rate has since been controlled. He is just back from completing hemodialysis as he did not get full hemodialysis yesterday. He is currently sitting up in his chair with no chest pain, shortness of breath or palpitations. He does not believe he has a history of atrial fibrillation. Per the notes they feel that he should have a history of atrial fibrillation just because he is on Cardizem and metoprolol, but these might have been placed due to high blood pressure, so unknown at this time whether he did have a previous history of atrial fibrillation. PAST MEDICAL HISTORY: 1. Hypertension. 2. End-stage renal disease on hemodialysis Saturday, , Saturday. PAST SURGICAL HISTORY: 1. AV shunt. 2. Right foot toe amputation. ALLERGIES: IRON. MEDICATIONS: 1. Loratadine 10 mg Saturday, Saturday, Saturday. 2. DuoNeb every 6 hours. 3. Albuterol every 4-6 hours as needed for shortness of breath. 4. Flomax 0.4 mg every night. 5. Lipitor 40 mg every night. 6. Cartia XT 120 mg Saturday, , Saturday. 7. Tylenol with codeine every 4 hours as needed for pain. 8. Trazodone 100 mg every night. 9. Renagel 800 mg t.i.d. 10. ____ 2 mg every night. 11. NovoLog sliding scale. 12. Levemir 15 units every night. 13. Levemir 25 units with breakfast. 14. Megestrol 10 mL daily. FAMILY HISTORY: Denies premature coronary artery disease or sudden cardiac within the family. SOCIAL HISTORY: Denies tobacco, alcohol or drug abuse. REVIEW OF SYSTEMS: Fourteen systems were reviewed including osteopathic. Pertinent positives and negatives above, otherwise negative. PHYSICAL EXAMINATION: VITAL SIGNS: Temperature 98.0, heart rate 91, blood pressure 114/61, respirations 20, pulse oximetry 93% on 1 liter. GENERAL: The patient appears well in no acute distress, alert, awake and oriented x 3. HEENT: Extraocular muscles intact. Mucous membranes moist. NECK: Supple. No JVD at 45 degrees. No carotid bruits heard bilaterally. Carotid upstroke is brisk in nature. HEART: Irregularly irregular. Positive first and second heart sounds with no noted murmurs, gallops or rubs. LUNGS: Clear to auscultation bilaterally. No wheezes, rales or rhonchi. ABDOMEN: Soft, nontender, nondistended. No organomegaly noted. EXTREMITIES: Show no clubbing, cyanosis or edema. Femoral and distal pulses are intact bilaterally. NEUROLOGIC: No focal deficits. SKIN: Warm, dry and intact. OSTEOPATHIC: No kyphoscoliosis, lordosis or paraspinal tender points. LABORATORY DATA: Hemoglobin 9.6, hematocrit 29.2, platelets 227. Potassium 4.0, BUN 51, creatinine 4.0. Troponin 0.89. Electrocardiogram (03/08/2018 at 1625): Atrial fibrillation with rapid ventricular response, borderline right axis deviation, incomplete right bundle branch block, nonspecific ST-T wave changes. IMPRESSION: 1. Atrial fibrillation with rapid ventricular response, which appears to be a new diagnosis for him. 2. End-stage renal disease on hemodialysis Saturday, , Saturday. 3. Hypertension. 4. Elevated troponin, possible type 2. RECOMMENDATIONS: 1. Mr. Perla appears to have been found to be in atrial fibrillation with rapid ventricular response. Since being started on medications, he now appears to be with controlled ventricular response. For now, we will continue him on Cardizem as well as metoprolol tartrate. 2. As far as his CHADS-VASc score, it would equal 2, he does have a small drop in his hemoglobin, although this is most likely due to fluid retention from not completing his dialysis. We will make sure his hemoglobin is stable and then discuss further with him consideration of anticoagulation depending on his hospital course. My other concern is that he is in a wheelchair and I am unsure if he is wheelchair bound or has difficulty with gait. 3. He does have an elevated troponin, but this may be due to atrial fibrillation with rapid ventricular response, as well as his significant kidney disease. He has no significant EKG changes and no chest pain. Overall, I think that he should undergo ischemic evaluation with a pharmacologic nuclear stress test and if this is positive, then we will proceed to cardiac catheterization. 4. We will check a 2-D echo to look at his overall left ventricular function, cardiac structure and possible valvulopathies. 5. Further recommendations will be made based on the hospital course. Thank you for allowing me to see Memo Perla. If there are any questions, please do not hesitate to call. Reji Fabian, DO VGP/KD , 02:40 PM , 03:22 PM
[2018-03-09] MEDS ORDERED: TAMSULOSIN HCL 0.4 MG CAP PO SCH (21:00)
--- NOTE | 2018-03-09 21:27 | EKG ---
Date Performed: 03/08/2018 Time Performed: 16:25:16 PTAGE: 67 years EKG: ATRIAL FIBRILLATION WITH RAPID VENTRICULAR RESPONSE BORDERLINE RIGHT AXIS DEVIATION INCOMPL ETE RIGHT BUNDLE BRANCH BLOCK MODERATE ST DEPRESSION ABNORMAL ECG NO PREVIOUS TRACING DOCTOR: Luis Archuleta Interpretating Date/Time 03/09/2018 21:25:50
[2018-03-09] MEDS: BUMETANIDE 1 MG TAB PO SCH (22:08)
[2018-03-09] MEDS: traZODone HCL 100 MG TAB PO SCH (22:08)
[2018-03-09] MEDS: TAMSULOSIN HCL 0.4 MG CAP PO SCH (22:15)
[2018-03-10] VITALS (11 sets, daily range): BP systolic 103–139; BP diastolic 55–65; PULSE 68–87; RESP 16–20; TEMP 97.7–99.5; O2SAT 91–96
[2018-03-10] MEDS: INSULIN DETEMIR 100 UNITS/ML VIAL SQ SCH ×2 (07:00→20:52)
[2018-03-10] MEDS: INSULIN ASPART SUPPLEMENTAL SCALE SQ SCH ×4 (08:00→20:52)
[2018-03-10] MEDS: SEVELAMER CARBONATE 800 MG TAB PO SCH ×3 (08:17→17:58)
[2018-03-10] MEDS: DILTIAZEM-CD 120 MG CAP ER PO SCH (08:17)
[2018-03-10] MEDS: ASPIRIN EC 81 MG TABEC PO SCH (08:17)
[2018-03-10] MEDS: PRAVASTATIN SOD 40 MG TAB PO SCH (08:17)
[2018-03-10] MEDS: FUROSEMIDE 40 MG TAB PO SCH (08:18)
[2018-03-10] MEDS: DOCUSATE SODIUM 50 MG/SENNA 8.6 MG TAB PO SCH ×2 (08:18→20:44)
[2018-03-10] MEDS: LORATADINE 10 MG TAB PO SCH (08:18)
[2018-03-10] MEDS: METOPROLOL TARTRATE 25 MG TAB PO SCH ×2 (08:18→20:44)
[2018-03-10] MEDS: HEPARIN SODIUM - SQ 10,000 UNITS/ML VIAL SQ SCH ×2 (08:19→20:44)
[2018-03-10] MEDS: VITAMIN B CMPLX/VITC/FOLIC AC CAP PO SCH (08:19)
[2018-03-10] MEDS: MEGESTROL ACETATE SUSP 400 MG/10 ML CUP PO SCH (08:20)
[2018-03-10] MEDS: SODIUM CHLORIDE 0.9% FLUSH 10 ML FLUSH IV FLUSH SCH ×2 (09:00→20:44)
--- NOTE | 2018-03-10 09:34 | HHI.PR ---
Subjective Remarks He is in the wheelchair. Just returned from [facility]. Says he has intermittent chest pain when he moves around. No shortness of breath or chest pain at this time. Says he wants to eat. No nausea or vomiting. No diaphoresis. No cough fever chills. However says he feels his chest is congested. Objective Vitals Vital Signs Date Time Temp Pulse Resp B/P (MAP) Pulse Ox O2 Delivery O2 Flow Rate FiO2 03/10/18 07:45 98.5 75 18 123/65 (84) 94 03/10/18 04:00 Room Air 03/10/18 04:00 98.9 83 17 139/65 (89) 93 03/10/18 03:52 79 03/10/18 00:00 Room Air 03/10/18 00:00 99.5 85 16 114/56 (75) 91 03/09/18 23:51 84 03/09/18 20:00 99.2 88 17 108/57 (74) 93 03/09/18 20:00 Room Air 03/09/18 19:56 84 03/09/18 16:01 92 21 03/09/18 16:00 79 03/09/18 16:00 98.3 99 20 123/61 (81) 93 03/09/18 12:00 89 I/O 03/09/18 03/09/18 03/09/18 03/10/18 03/10/18 03/10/18 07:00 15:00 23:00 07:00 15:00 23:00 Intake Total 480 ml 360 ml 1295 ml Output Total 0 ml 1000 ml 1250 ml Balance 480 ml -1000 ml 360 ml 45 ml Intake Oral 480 ml 360 ml 1295 ml Output Urine Total 0 ml 1250 ml Hemodialysis 1000 ml # Voids 2 # Bowel Movements 0 1 0 Result Diagram: 03/09/18 0435 03/09/18 0435 Imaging Last Impressions Chest X-Ray 03/08/18 1616 Signed Impressions: Service Date/Time: Thursday, March 08, 2018 17:06 - CONCLUSION: 1. Cardiomegaly with increase in pulmonary vascularity. 2. Right pleural effusion. Elias Jj MD Objective Remarks GENERAL: Pleasant middle-aged white male in no acute distress. HEENT: PERRLA, EOMI. No scleral icterus or conjunctival pallor. No lid lag or facial droop. CARDIOVASCULAR: Irregularly irregular. No murmurs. No chest tenderness to palpation. RESPIRATORY: Clear to auscultation. Breath sounds equal bilaterally. GASTROINTESTINAL: Abdomen soft, non-tender, nondistended. BS normal x4Q. NEUROLOGICAL: Awake, alert. No focal neurologic deficits. Normal speech. A/P Problem List: (1) Atrial fibrillation with RVR ICD Code: I48.91 - Unspecified atrial fibrillation Status: Acute (2) Elevated troponin ICD Code: R74.8 - Abnormal levels of other serum enzymes (3) ESRD on hemodialysis ICD Code: N18.6 - End stage renal disease; Z99.2 - Dependence on renal dialysis Assessment and Plan A-fib w/ RVR: apparent h/o A-fib, however pt unaware of diagnosis, on Cardizem PO and Metoprolol PO per review of medication list, HR 150's while in dialysis Received Cardizem 30mg po and Lopressor 5mg IV in ER, HR better controlled. Monitor on telemetry Continue home Cardizem 120mg po qd and Metoprolol 25mg bid, monitor BP. 2D Echo to eval for valvular abnormalities. Cardio Consult for further evaluation/recommendations. Lexiscan 03/10 Elevated Trop: likely secondary to renal dysfunction in combination with tachyarrhythmia, no c/o chest pain, no evidence of ischemia. Check serial cardiac enzymes, check Hgb A1c, check lipid profile Continue ASA, Statin, Metoprolol. Cardiology consulted lexiscan 03/10 ESRD on HD: T//Sat, follows w/ Dr. Ch, had approx 1L fluid taken off today but HD incomplete per report, will consult Nephrology to resume HD as needed. DVT Prophylaxis: Heparin sq CM consulted for DC planning as needed. Discussed with the patient, nurse DC plan: lexiscan 03/10. DC when improved and cleared by cardio Debi Mosqueda MD March 10, 2018 09:34
[2018-03-10] MEDS ORDERED: REGADENOSON INJ 0.4 MG/5 ML SYR ONE (11:11)
--- NOTE | 2018-03-10 13:50 | PD.CARD.PN ---
Subjective Subjective Remarks No events overnight Heart rates controlled No SOB Objective Medications Current Medications Medications (Trade) Dose Ordered Sig/Jabier Route Start Time Stop Time Status Last Admin (Lopressor) 25 mg Q12HR PO 03/08/18 21:00 03/10/18 08:18 (Cardizem Cd) 120 mg DAILY PO 03/09/18 09:00 03/10/18 08:17 (Ecotrin Ec) 81 mg DAILY PO 03/09/18 09:00 03/10/18 08:17 (Pravachol) 40 mg DAILY PO 03/09/18 09:00 03/10/18 08:17 (Lasix) 40 mg DAILY PO 03/09/18 09:00 03/10/18 08:18 (NS Flush) 2 ml UNSCH PRN IV FLUSH 03/08/18 19:15 (NS Flush) 2 ml BID IV FLUSH 03/08/18 21:00 03/10/18 09:00 (Reglan Inj) 5 mg Q6H PRN IV PUSH 03/08/18 19:15 (Heparin Inj) 5,000 units Q12H SQ 03/09/18 09:00 03/10/18 08:19 (Tylenol) 650 mg Q6H PRN PO 03/08/18 19:15 (Blair 5-325 Mg) 1 tab Q4H PRN PO 03/08/18 19:15 (Morphine Inj) 2 mg Q3H PRN IV 03/08/18 19:45 (Lilli-Colace) 1 tab BID PO 03/08/18 21:00 03/10/18 08:18 (Milk Of Magnesia Liq) 30 ml Q12H PRN PO 03/08/18 19:15 (Senokot) 17.2 mg Q12H PRN PO 03/08/18 19:15 (Dulcolax Supp) 10 mg DAILY PRN RECTAL 03/08/18 19:15 (Lactulose Liq) 30 ml DAILY PRN PO 03/08/18 19:15 (Tylenol-Codeine #3) 1 tab Q4H PRN PO 03/08/18 22:45 (Bumetanide) 2 mg HS PO 03/09/18 21:00 03/09/18 22:08 (Levemir Inj) 15 units HS SQ 5/20/18 21:00 03/09/18 22:15 (Levemir Inj) 25 units AC BREAKFAST SQ 03/09/18 07:00 03/09/18 08:28 (Claritin) 10 mg DAILY PO 03/09/18 09:00 03/10/18 08:18 (Megace Liq) 400 mg DAILY PO 03/09/18 09:00 03/10/18 08:20 (Renvela) 800 mg TIDAC PO 03/09/18 08:00 03/10/18 12:12 (Nephrocaps) 1 cap DAILY PO 03/09/18 09:00 03/10/18 08:19 (Desyrel) 100 mg HS PO 03/08/18 23:15 03/09/18 22:08 (D50w (Vial) Inj) 50 ml UNSCH PRN IV PUSH 03/08/18 23:00 (Glucagon Inj) 1 mg UNSCH PRN OTHER 03/08/18 23:00 (NovoLOG SUPPLEMENTAL SCALE) 1 ACHS SLIDING SCALE SQ 03/09/18 08:00 03/09/18 22:19 (Flomax) 0.4 mg HS PO 03/08/18 23:00 03/09/18 22:15 Sodium Chloride 1,000 ml @ 0 mls/hr Q0M PRN OTHER 03/09/18 10:48 03/09/18 12:37 (Heparin Inj) 8,000 units UNSCH PRN IV FLUSH 03/09/18 11:00 Sodium Chloride 1,000 ml @ 200 mls/hr Q5H PRN IV 03/09/18 10:48 Sodium Chloride 1,000 ml @ 0 mls/hr Q0M PRN OTHER 03/09/18 10:48 (Mannitol Inj) 12.5 gm UNSCH PRN IV 03/09/18 11:00 Albumin Human 100 ml @ 60 mls/hr UNSCH PRN IV 03/09/18 11:00 (NS Flush) 5 ml UNSCH PRN IV FLUSH 03/09/18 11:00 03/09/18 12:37 (Heparin Inj) UNSCH PRN .XX 03/09/18 11:00 03/09/18 12:38 (Gentamicin Inj) 20 mg UNSCH PRN OTHER 03/09/18 11:00 03/09/18 12:37 (Zofran Odt) 4 mg UNSCH PRN PO 03/09/18 11:00 (Tylenol) 650 mg UNSCH PRN PO 03/09/18 11:00 (Benadryl) 25 mg UNSCH PRN PO 03/09/18 11:00 (Nitrostat Sl) 0.4 mg UNSCH PRN SL 03/09/18 11:00 (Catapres) 0.1 mg UNSCH PRN PO 03/09/18 11:00 (Gelfoam 12 Mm/7 Mm Top) 1 foam UNSCH PRN TOP 03/09/18 11:00 Vital Signs / I&O Vital Signs Date Time Temp Pulse Resp B/P (MAP) Pulse Ox O2 Delivery O2 Flow Rate FiO2 03/10/18 11:50 97.8 73 20 103/55 (71) 96 03/10/18 08:00 87 03/10/18 07:45 98.5 75 18 123/65 (84) 94 03/10/18 07:00 Room Air 03/10/18 04:00 Room Air 03/10/18 04:00 98.9 83 17 139/65 (89) 93 03/10/18 03:52 79 03/10/18 00:00 Room Air 03/10/18 00:00 99.5 85 16 114/56 (75) 91 03/09/18 23:51 84 03/09/18 20:00 99.2 88 17 108/57 (74) 93 03/09/18 20:00 Room Air 03/09/18 19:56 84 03/09/18 16:01 92 21 03/09/18 16:00 79 03/09/18 16:00 98.3 99 20 123/61 (81) 93 I/O 03/09/18 03/09/18 03/09/18 03/10/18 03/10/18 03/10/18 07:00 15:00 23:00 07:00 15:00 23:00 Intake Total 480 ml 360 ml 1295 ml Output Total 0 ml 1000 ml 1250 ml Balance 480 ml -1000 ml 360 ml 45 ml Intake Oral 480 ml 360 ml 1295 ml Output Urine Total 0 ml 1250 ml Hemodialysis 1000 ml # Voids 2 # Bowel Movements 0 1 0 Physical Exam GENERAL: NAD SKIN: Warm and dry. HEAD: Atraumatic. Normocephalic. EYES: Pupils equal and round. No scleral icterus. No injection or drainage. ENT: No nasal bleeding or discharge. Mucous membranes pink and moist. NECK: Trachea midline. No JVD. CARDIOVASCULAR: Irregularly irregular RESPIRATORY: No accessory muscle use. Clear to auscultation. Breath sounds equal bilaterally. GASTROINTESTINAL: Abdomen soft, non-tender, nondistended. Hepatic and splenic margins not palpable. MUSCULOSKELETAL: Extremities without clubbing, cyanosis, or edema. No obvious deformities. NEUROLOGICAL: Awake and alert. No obvious cranial nerve deficits. Motor grossly within normal limits. Five out of 5 muscle strength in the arms and legs. Normal speech. PSYCHIATRIC: Appropriate mood and affect; insight and judgment normal. Assessment and Plan Problem List: (1) Atrial fibrillation with RVR ICD Codes: I48.91 - Unspecified atrial fibrillation Status: Acute (2) Elevated troponin ICD Codes: R74.8 - Abnormal levels of other serum enzymes (3) ESRD on hemodialysis ICD Codes: N18.6 - End stage renal disease; Z99.2 - Dependence on renal dialysis Assessment and Plan 1) Afib with RVR New onset Heart rates controlled CHADSVASc = 2 Recheck Hgb Wheelchair bound mostly, no walking, so less chance of falling 2) Elevated troponin Most likely type 2 No chest pain MPI pending 3) 2D echo pending Reji Fabian DO March 10, 2018 13:50
--- NOTE | 2018-03-10 14:38 | HHI.NPPN ---
Subjective History of Present Illness 57-year-old with atrial fibrillation with RVR, ESRD on Saturday dialysis Objective Data Data Vital Signs Date Time Temp Pulse Resp B/P (MAP) Pulse Ox O2 Delivery O2 Flow Rate FiO2 03/10/18 11:50 97.8 73 20 103/55 (71) 96 03/10/18 08:00 87 03/10/18 07:45 98.5 75 18 123/65 (84) 94 03/10/18 07:00 Room Air 03/10/18 04:00 Room Air 03/10/18 04:00 98.9 83 17 139/65 (89) 93 03/10/18 03:52 79 03/10/18 00:00 Room Air 03/10/18 00:00 99.5 85 16 114/56 (75) 91 03/09/18 23:51 84 03/09/18 20:00 99.2 88 17 108/57 (74) 93 03/09/18 20:00 Room Air 03/09/18 19:56 84 03/09/18 16:01 92 21 03/09/18 16:00 79 03/09/18 16:00 98.3 99 20 123/61 (81) 93 -: 03/09/18 0435 03/09/18 0435 Physical Exam General Appearance: Well Developed, Well Nourished Neck Neck Exam: Neck Supple Pulmonary Resp Exam: Clear Bilaterally, Breath Sounds Equal Cardiology CV Exam: Arrhythmia Gastrointestinal/Abdomen GI Exam: Soft, Non-Tender, Bowel Sounds Present Extremeties Extremities Exam: Moderate Edema Assessment/Plan Problem List: (1) ESRD on hemodialysis ICD Codes: N18.6 - End stage renal disease; Z99.2 - Dependence on renal dialysis Plan: Hemodialysis plan for tomorrow continue Saturday schedule Continue to monitor A. fib had a stress test done, follow results. (2) Atrial fibrillation with RVR ICD Codes: I48.91 - Unspecified atrial fibrillation Status: Acute Plan: Rate is better controlled Anamika Ch MD March 10, 2018 14:38
--- NOTE | 2018-03-10 16:32 | RADRPT ---
EXAM DATE/TIME: 03/10/2018 10:51 [place] COMPARISON: No previous studies available for comparison. INDICATIONS : Dyspnea and lightheadedness. Atrial fibrillation. DOSE: 26.2 mCi Tc99m Myoview at stress. 8.5 mCi Tc99m Myoview at rest. 0.4 mg Lexiscan STRESS SYMPTOMS: Shortness of breath. EJECTION FRACTION: 69% MEDICAL HISTORY : Diabetes mellitus type 2. Renal failure, chronic. Hypercholesterolemia. SURGICAL HISTORY : Right fifth toe amputation. ENCOUNTER: Initial ACUITY: 1 day PAIN SCALE: 0/10 LOCATION: chest TECHNIQUE: The patient underwent pharmacologic stress with infusion of prescribed dose. Continuous ECG tracing was monitored during stress. Gated SPECT imaging was performed after stress and conventional SPECT i maging was performed at rest. The examination was performed on a SPECT/CT scanner, both attenuation and non-corrected datasets were reviewed. FINDINGS: DISTRIBUTION: The maximum perfused segment at stress is in the septal wall. PERFUSION STUDY: The pattern of perfusion at stress is within normal limits. GATED STUDY: There is intact wall motion and thickening without hypokinetic or dyskinetic segments. CONCLUSION: 1. No significant stress induced ischemia. 2. Intact wall motion with EF of 69%. RISK CATEGORY: Low (<1% Annual Mortality Rate) Mike Sweeney MD on March 10, 2018 at 16:28 Board Certified Radiologist. This report was verified electronically.
[2018-03-10] MEDS: TAMSULOSIN HCL 0.4 MG CAP PO SCH (20:43)
[2018-03-10] MEDS: traZODone HCL 100 MG TAB PO SCH (20:44)
[2018-03-10] MEDS: BUMETANIDE 1 MG TAB PO SCH (20:44)
[2018-03-11] VITALS (9 sets, daily range): BP systolic 111–134; BP diastolic 55–65; PULSE 69–82; RESP 16–18; TEMP 97.8–98.6; O2SAT 91–95
[2018-03-11] MEDS: INSULIN ASPART SUPPLEMENTAL SCALE SQ SCH ×2 (08:00→12:34)
[2018-03-11] MEDS: METOPROLOL TARTRATE 25 MG TAB PO SCH (08:23)
[2018-03-11] MEDS: DOCUSATE SODIUM 50 MG/SENNA 8.6 MG TAB PO SCH (08:23)
[2018-03-11] MEDS: SEVELAMER CARBONATE 800 MG TAB PO SCH ×2 (08:23→11:17)
[2018-03-11] MEDS: FUROSEMIDE 40 MG TAB PO SCH (08:23)
[2018-03-11] MEDS: DILTIAZEM-CD 120 MG CAP ER PO SCH (08:23)
[2018-03-11] MEDS: PRAVASTATIN SOD 40 MG TAB PO SCH (08:24)
[2018-03-11] MEDS: VITAMIN B CMPLX/VITC/FOLIC AC CAP PO SCH (08:24)
[2018-03-11] MEDS: ASPIRIN EC 81 MG TABEC PO SCH (08:24)
[2018-03-11] MEDS: LORATADINE 10 MG TAB PO SCH (08:24)
[2018-03-11] MEDS: HEPARIN SODIUM - SQ 10,000 UNITS/ML VIAL SQ SCH (08:25)
[2018-03-11] MEDS: SODIUM CHLORIDE 0.9% FLUSH 10 ML FLUSH IV FLUSH SCH (08:25)
[2018-03-11] MEDS: MEGESTROL ACETATE SUSP 400 MG/10 ML CUP PO SCH (08:25)
[2018-03-11] MEDS ORDERED: DILTIAZEM-CD 120 MG CAP ER PO SCH (09:00)
[2018-03-11] MEDS: INSULIN DETEMIR 100 UNITS/ML VIAL SQ SCH (09:50)
--- NOTE | 2018-03-11 10:56 | HHI.PR ---
Objective Vitals Vital Signs Date Time Temp Pulse Resp B/P (MAP) Pulse Ox O2 Delivery O2 Flow Rate FiO2 03/11/18 10:54 21 03/11/18 08:00 72 03/11/18 07:50 97.8 82 18 134/65 (88) 94 03/11/18 05:30 94 03/11/18 04:46 98.6 76 16 111/56 (74) 91 03/11/18 03:52 70 03/11/18 00:30 98.4 73 16 112/55 (74) 91 03/11/18 00:01 72 03/10/18 20:35 Room Air 03/10/18 20:04 76 03/10/18 19:47 98.1 74 16 118/58 (78) 93 03/10/18 17:23 95 21 03/10/18 16:00 68 03/10/18 14:05 97.7 74 20 113/59 (77) 95 03/10/18 11:50 97.8 73 20 103/55 (71) 96 I/O 03/10/18 03/10/18 03/10/18 03/11/18 03/11/18 03/11/18 07:00 15:00 23:00 07:00 15:00 23:00 Intake Total 1295 ml 0 ml 0 ml Output Total 1250 ml 300 ml 50 ml Balance 45 ml -300 ml -50 ml Intake Oral 1295 ml 0 ml 0 ml Output Urine Total 1250 ml 300 ml 50 ml # Bowel Movements 0 1 0 Result Diagram: 03/09/18 0435 03/09/18 043 Objective Remarks GENERAL: Pleasant middle-aged white male in no acute distress. HEENT: PERRLA, EOMI. No scleral icterus or conjunctival pallor. No lid lag or facial droop. CARDIOVASCULAR: Irregularly irregular. No murmurs. No chest tenderness to palpation. RESPIRATORY: Clear to auscultation. Breath sounds equal bilaterally. GASTROINTESTINAL: Abdomen soft, non-tender, nondistended. BS normal x4Q. NEUROLOGICAL: Awake, alert. No focal neurologic deficits. Normal speech. A/P Problem List: (1) Atrial fibrillation with RVR ICD Code: I48.91 - Unspecified atrial fibrillation Status: Acute (2) Elevated troponin ICD Code: R74.8 - Abnormal levels of other serum enzymes (3) ESRD on hemodialysis ICD Code: N18.6 - End stage renal disease; Z99.2 - Dependence on renal dialysis Assessment and Plan A-fib w/ RVR: apparent h/o A-fib, however pt unaware of diagnosis, on Cardizem PO and Metoprolol PO per review of medication list, HR 150's while in dialysis Received Cardizem 30mg po and Lopressor 5mg IV in ER, HR better controlled. Monitor on telemetry Continue home Cardizem 120mg po qd and Metoprolol 25mg bid, monitor BP. 2D Echo to eval for valvular abnormalities. Cardio Consult for further evaluation/recommendations. Lexiscan 03/10 Elevated Trop: likely secondary to renal dysfunction in combination with tachyarrhythmia, no c/o chest pain, no evidence of ischemia. Check serial cardiac enzymes, check Hgb A1c, check lipid profile Continue ASA, Statin, Metoprolol. Cardiology consulted lexiscan 03/10 ESRD on HD: T//Sat, follows w/ Dr. Ch, had approx 1L fluid taken off today but HD incomplete per report, will consult Nephrology to resume HD as needed. DVT Prophylaxis: Heparin sq CM consulted for DC planning as needed. Discussed with the patient, nurse DC plan: lexiscan 03/10. DC when improved and cleared by cardio Debi Mosqueda MD March 11, 2018 10:56
[2018-03-11] MEDS ORDERED: ECASA81 PO (11:04)
[2018-03-11] MEDS ORDERED: TYLETAB34 PO (11:04)
[2018-03-11] MEDS ORDERED: NITR0.4S SL (11:04)
[2018-03-11] MEDS ORDERED: METO25TA3 PO (11:04)
--- NOTE | 2018-03-11 11:06 | HHI.DS ---
Discharge Summary Admission Date March 08, 2018 at 19:22 Admitting Diagnosis Afib Rvr, elevated troponin. (1) Atrial fibrillation with RVR ICD Code: I48.91 - Unspecified atrial fibrillation Status: Acute (2) Elevated troponin ICD Code: R74.8 - Abnormal levels of other serum enzymes (3) ESRD on hemodialysis ICD Code: N18.6 - End stage renal disease; Z99.2 - Dependence on renal dialysis Brief History - From Admission This is a 67-year-old male with a PMH of HTN, ESRD on HD T/Th/Sat and h/o A-fib who was sent to the ER from Dialysis for HR 140-150's w/ associated SOB. No c/ o chest pain. Upon arrival, noted to be in A-fib w/ RVR. Pt reports no previous h/o A-fib, however per review of medication list pt on Cardizem and Metoprolol at home. BP 143/85, HR 148, O2 sat 95% RA. CBC essentially unremarkable. Creatinine 2.99, no previous labs for comparison. Troponin 0.12. INR 1.1. CXR with cardiomegaly and increased pulmonary vascularity, right pleural effusion. S/p Cardizem 30mg po and Lopressor 5mg IV in ER, HR currently 90's. CBC/BMP: 03/09/18 0435 03/09/18 0435 Significant Findings Laboratory Tests Test 03/08/18 16:20 03/09/18 01:04 03/09/18 04:35 Red Blood Count 3.75 MIL/MM3 (4.50-5.90) 3.28 MIL/MM3 (4.50-5.90) Hemoglobin 11.0 GM/DL (13.0-17.0) 9.6 GM/DL (13.0-17.0) Hematocrit 33.6 % (39.0-51.0) 29.2 % (39.0-51.0) Red Cell Distribution Width 19.6 % (11.6-17.2) 19.3 % (11.6-17.2) Neutrophils (%) (Auto) 73.6 % (16.0-70.0) Monocytes (%) (Auto) 12.4 % (0.0-8.0) 14.3 % (0.0-8.0) Lymphocytes # (Auto) 0.8 TH/MM3 (1.0-4.8) 0.9 TH/MM3 (1.0-4.8) Monocytes # (Auto) 1.0 TH/MM3 (0-0.9) Blood Urea Nitrogen 38 MG/DL (7-18) 51 MG/DL (7-18) Creatinine 2.99 MG/DL (0.60-1.30) 4.00 MG/DL (0.60-1.30) Random Glucose 171 MG/DL (74-106) 137 MG/DL (74-106) Calcium Level 8.3 MG/DL (8.5-10.1) 8.0 MG/DL (8.5-10.1) Estimat Glomerular Filtration Rate 21 ML/MIN (>89) 15 ML/MIN (>89) Creatine Kinase MB 11.7 NG/ML (0.5-3.6) Troponin I 0.12 NG/ML (0.02-0.05) 0.86 NG/ML (0.02-0.05) 0.89 NG/ML (0.02-0.05) Eosinophils (%) (Auto) 4.7 % (0.0-4.0) Albumin 2.1 GM/DL (3.4-5.0) Hemoglobin A1c 6.4 % (4.3-6.0) Cholesterol Level 55 MG/DL (120-200) HDL Cholesterol 24.8 MG/DL (40.0-60.0) PE at Discharge GENERAL: Pleasant middle-aged white male in no acute distress. HEENT: PERRLA, EOMI. No scleral icterus or conjunctival pallor. No lid lag or facial droop. CARDIOVASCULAR: Irregularly irregular. No murmurs. No chest tenderness to palpation. RESPIRATORY: Clear to auscultation. Breath sounds equal bilaterally. GASTROINTESTINAL: Abdomen soft, non-tender, nondistended. BS normal x4Q. NEUROLOGICAL: Awake, alert. No focal neurologic deficits. Normal speech. Pt Condition on Discharge: Stable Discharge Disposition: Discharge to SNF Discharge Instructions DIET: Follow Instructions for: Heart Healthy Diet, Diabetic Diet, Dialysis Diet Activities you can perform: Regular-No Restrictions Debi Mosqueda MD March 11, 2018 11:06
--- NOTE | 2018-03-11 11:07 | HHI.PR ---
Subjective Remarks Appears in distress at this time. Says is short of breath is moving around with exertion. However no chest pain. No palpitations. No diaphoresis, no nausea. Objective Vitals Vital Signs Date Time Temp Pulse Resp B/P (MAP) Pulse Ox O2 Delivery O2 Flow Rate FiO2 03/11/18 10:54 21 03/11/18 08:00 72 03/11/18 07:50 97.8 82 18 134/65 (88) 94 03/11/18 05:30 94 03/11/18 04:46 98.6 76 16 111/56 (74) 91 03/11/18 03:52 70 03/11/18 00:30 98.4 73 16 112/55 (74) 91 03/11/18 00:01 72 03/10/18 20:35 Room Air 03/10/18 20:04 76 03/10/18 19:47 98.1 74 16 118/58 (78) 93 03/10/18 17:23 95 21 03/10/18 16:00 68 03/10/18 14:05 97.7 74 20 113/59 (77) 95 03/10/18 11:50 97.8 73 20 103/55 (71) 96 I/O 03/10/18 03/10/18 03/10/18 03/11/18 03/11/18 03/11/18 07:00 15:00 23:00 07:00 15:00 23:00 Intake Total 1295 ml 0 ml 0 ml Output Total 1250 ml 300 ml 50 ml Balance 45 ml -300 ml -50 ml Intake Oral 1295 ml 0 ml 0 ml Output Urine Total 1250 ml 300 ml 50 ml # Bowel Movements 0 1 0 Result Diagram: 03/09/18 0435 03/09/18 0435 Imaging Last Impressions Myocardial Perfusion Scan Nuc Med 03/10/18 0600 Signed Impressions: Service Date/Time: Saturday, March 10, 2018 10:51 - CONCLUSION: 1. No significant stress induced ischemia. 2. Intact wall motion with EF of 69%%. RISK CATEGORY : Low (<1%% Annual Mortality Rate) Mike Sweeney MD Chest X-Ray 03/08/18 1616 Signed Impressions: Service Date/Time: Thursday, March 08, 2018 17:06 - CONCLUSION: 1. Cardiomegaly with increase in pulmonary vascularity. 2. Right pleural effusion. Elias Jj MD Objective Remarks GENERAL: Pleasant middle-aged white male in no acute distress. HEENT: PERRLA, EOMI. No scleral icterus or conjunctival pallor. No lid lag or facial droop. CARDIOVASCULAR: Irregularly irregular. No murmurs. No chest tenderness to palpation. RESPIRATORY: Clear to auscultation. Breath sounds equal bilaterally. GASTROINTESTINAL: Abdomen soft, non-tender, nondistended. BS normal x4Q. NEUROLOGICAL: Awake, alert. No focal neurologic deficits. Normal speech. A/P Problem List: (1) Atrial fibrillation with RVR ICD Code: I48.91 - Unspecified atrial fibrillation Status: Acute (2) Elevated troponin ICD Code: R74.8 - Abnormal levels of other serum enzymes (3) ESRD on hemodialysis ICD Code: N18.6 - End stage renal disease; Z99.2 - Dependence on renal dialysis Assessment and Plan A-fib w/ RVR: apparent h/o A-fib, however pt unaware of diagnosis, on Cardizem PO and Metoprolol PO per review of medication list, HR 150's while in dialysis Received Cardizem 30mg po and Lopressor 5mg IV in ER, HR better controlled. Monitor on telemetry Continue home Cardizem 120mg po qd and Metoprolol 25mg bid, monitor BP. 2D Echo to eval for valvular abnormalities. Cardio Consult for further evaluation/recommendations. Lexiscan 03/10 reviewed, low risk. No plan for further cardiac intervention by cardiology. Elevated Trop: likely secondary to renal dysfunction in combination with tachyarrhythmia, no c/o chest pain, no evidence of ischemia. Check serial cardiac enzymes, check Hgb A1c, check lipid profile Continue ASA, Statin, Metoprolol. Cardiology consulted Lexiscan 03/10 reviewed, low risk. No plan for further cardiac intervention by cardiology. ESRD on HD: T//Sat, follows w/ Dr. Ch, had approx 1L fluid taken off today but HD incomplete per report, will consult Nephrology to resume HD as needed. DVT Prophylaxis: Heparin sq CM consulted for DC planning as needed. Discussed with the patient, nurse DC plan: lexiscan 03/10. DC when improved and cleared by cardio and nephro Plan to DC to SNF Debi Mosqueda MD March 11, 2018 11:07
[2018-03-11 11:35] LABS: AUTOMATED NEUTROPHIL # 5.8 TH/MM3 (1.8-7.7); BASOPHIL % 0.6 % (0.0-2.0); EOSINOPHIL # 0.4 TH/MM3 (0-0.4); HEMOGLOBIN 9.4 GM/DL (13.0-17.0); LYMPH % 9.8 % (9.0-44.0); LYMPHOCYTE # 0.8 TH/MM3 (1.0-4.8); MEAN CELL VOLUME 89.5 FL (80.0-100.0); MEAN CORPUSCULAR HEMOGLOBIN 29.1 PG (27.0-34.0); MEAN CORPUSCULAR HGB CONC 32.5 % (32.0-36.0); MEAN PLATELET VOLUME 7.7 FL (7.0-11.0); MONO % 9.7 % (0.0-8.0); MONOCYTE # 0.8 TH/MM3 (0-0.9); NEUT % 74.9 % (16.0-70.0); PLATELET COUNT 262 TH/MM3 (150-450); RED BLOOD COUNT 3.24 MIL/MM3 (4.50-5.90); RED CELL DISTRIBUTION WIDTH 19.3 % (11.6-17.2); WHITE BLOOD COUNT 7.7 TH/MM3 (4.0-11.0)
[2018-03-11] MEDS ORDERED: APIXABAN 5 MG TABLET PO SCH (13:00)
--- NOTE | 2018-03-11 13:04 | PD.CARD.PN ---
Subjective Subjective Remarks No events overnight Heart rates controlled No SOB Nuclear negative for ischemia Objective Medications Current Medications Medications (Trade) Dose Ordered Sig/Jabier Route Start Time Stop Time Status Last Admin (Lopressor) 25 mg Q12HR PO 03/08/18 21:00 03/11/18 08:23 (Cardizem Cd) 120 mg DAILY PO 03/09/18 09:00 03/11/18 08:23 (Ecotrin Ec) 81 mg DAILY PO 03/09/18 09:00 03/11/18 08:24 (Pravachol) 40 mg DAILY PO 03/09/18 09:00 03/11/18 08:24 (Lasix) 40 mg DAILY PO 03/09/18 09:00 03/11/18 08:23 (NS Flush) 2 ml UNSCH PRN IV FLUSH 03/08/18 19:15 (NS Flush) 2 ml BID IV FLUSH 03/08/18 21:00 03/11/18 08:25 (Reglan Inj) 5 mg Q6H PRN IV PUSH 03/08/18 19:15 (Heparin Inj) 5,000 units Q12H SQ 03/09/18 09:00 03/11/18 08:25 (Tylenol) 650 mg Q6H PRN PO 03/08/18 19:15 ([place] 5-325 Mg) 1 tab Q4H PRN PO 03/08/18 19:15 (Morphine Inj) 2 mg Q3H PRN IV 03/08/18 19:45 (Lilli-Colace) 1 tab BID PO 03/08/18 21:00 03/11/18 08:23 (Milk Of Magnesia Liq) 30 ml Q12H PRN PO 03/08/18 19:15 (Senokot) 17.2 mg Q12H PRN PO 03/08/18 19:15 (Dulcolax Supp) 10 mg DAILY PRN RECTAL 03/08/18 19:15 (Lactulose Liq) 30 ml DAILY PRN PO 03/08/18 19:15 (Tylenol-Codeine #3) 1 tab Q4H PRN PO 03/08/18 22:45 (Bumetanide) 2 mg HS PO 03/09/18 21:00 03/10/18 20:44 (Levemir Inj) 15 units HS SQ 03/09/18 21:00 03/10/18 20:52 (Levemir Inj) 25 units AC BREAKFAST SQ 03/09/18 07:00 03/11/18 09:50 (Claritin) 10 mg DAILY PO 03/09/18 09:00 03/11/18 08:24 (Megace Liq) 400 mg DAILY PO 03/09/18 09:00 03/11/18 08:25 (Renvela) 800 mg TIDAC PO 03/09/18 08:00 03/11/18 11:17 (Nephrocaps) 1 cap DAILY PO 03/09/18 09:00 03/11/18 08:24 (Desyrel) 100 mg HS PO 03/08/18 23:15 03/10/18 20:44 (D50w (Vial) Inj) 50 ml UNSCH PRN IV PUSH 03/08/18 23:00 (Glucagon Inj) 1 mg UNSCH PRN OTHER 03/08/18 23:00 (NovoLOG SUPPLEMENTAL SCALE) 1 ACHS SLIDING SCALE SQ 03/09/18 08:00 03/11/18 12:34 (Flomax) 0.4 mg HS PO 03/08/18 23:00 03/10/18 20:43 Sodium Chloride 1,000 ml @ 0 mls/hr Q0M PRN OTHER 03/09/18 10:48 03/09/18 12:37 (Heparin Inj) 8,000 units UNSCH PRN IV FLUSH 03/09/18 11:00 Sodium Chloride 1,000 ml @ 200 mls/hr Q5H PRN IV 03/09/18 10:48 Sodium Chloride 1,000 ml @ 0 mls/hr Q0M PRN OTHER 03/09/18 10:48 (Mannitol Inj) 12.5 gm UNSCH PRN IV 03/09/18 11:00 Albumin Human 100 ml @ 60 mls/hr UNSCH PRN IV 03/09/18 11:00 (NS Flush) 5 ml UNSCH PRN IV FLUSH 03/09/18 11:00 03/09/18 12:37 (Heparin Inj) UNSCH PRN .XX 03/09/18 11:00 03/09/18 12:38 (Gentamicin Inj) 20 mg UNSCH PRN OTHER 03/09/18 11:00 5/20/18 12:37 (Zofran Odt) 4 mg UNSCH PRN PO 03/09/18 11:00 (Tylenol) 650 mg UNSCH PRN PO 03/09/18 11:00 (Benadryl) 25 mg UNSCH PRN PO 03/09/18 11:00 (Nitrostat Sl) 0.4 mg UNSCH PRN SL 03/09/18 11:00 (Catapres) 0.1 mg UNSCH PRN PO 03/09/18 11:00 (Gelfoam 12 Mm/7 Mm Top) 1 foam UNSCH PRN TOP 03/09/18 11:00 (Eliquis) 5 mg BID PO 03/11/18 13:00 UNV Vital Signs / I&O Vital Signs Date Time Temp Pulse Resp B/P (MAP) Pulse Ox O2 Delivery O2 Flow Rate FiO2 03/11/18 11:50 97.9 69 18 123/57 (79) 95 03/11/18 10:54 21 03/11/18 08:00 72 03/11/18 07:50 97.8 82 18 134/65 (88) 94 03/11/18 05:30 94 03/11/18 04:46 98.6 76 16 111/56 (74) 91 03/11/18 03:52 70 03/11/18 00:30 98.4 73 16 112/55 (74) 91 03/11/18 00:01 72 03/10/18 20:35 Room Air 03/10/18 20:04 76 03/10/18 19:47 98.1 74 16 118/58 (78) 93 03/10/18 17:23 95 21 03/10/18 16:00 68 03/10/18 14:05 97.7 74 20 113/59 (77) 95 I/O 03/10/18 03/10/18 03/10/18 03/11/18 03/11/18 03/11/18 07:00 15:00 23:00 07:00 15:00 23:00 Intake Total 1295 ml 0 ml 0 ml Output Total 1250 ml 300 ml 50 ml Balance 45 ml -300 ml -50 ml Intake Oral 1295 ml 0 ml 0 ml Output Urine Total 1250 ml 300 ml 50 ml # Bowel Movements 0 1 0 Physical Exam GENERAL: NAD SKIN: Warm and dry. HEAD: Atraumatic. Normocephalic. EYES: Pupils equal and round. No scleral icterus. No injection or drainage. ENT: No nasal bleeding or discharge. Mucous membranes pink and moist. NECK: Trachea midline. No JVD. CARDIOVASCULAR: Irregularly irregular RESPIRATORY: No accessory muscle use. Clear to auscultation. Breath sounds equal bilaterally. GASTROINTESTINAL: Abdomen soft, non-tender, nondistended. Hepatic and splenic margins not palpable. MUSCULOSKELETAL: Extremities without clubbing, cyanosis, or edema. No obvious deformities. NEUROLOGICAL: Awake and alert. No obvious cranial nerve deficits. Motor grossly within normal limits. Five out of 5 muscle strength in the arms and legs. Normal speech. PSYCHIATRIC: Appropriate mood and affect; insight and judgment normal. Laboratory Laboratory Tests Test 03/11/18 11:09 White Blood Count 7.7 TH/MM3 Red Blood Count 3.24 MIL/MM3 Hemoglobin 9.4 GM/DL Hematocrit 29.0 % Mean Corpuscular Volume 89.5 FL Mean Corpuscular Hemoglobin 29.1 PG Mean Corpuscular Hemoglobin Concent 32.5 % Red Cell Distribution Width 19.3 % Platelet Count 262 TH/MM3 Mean Platelet Volume 7.7 FL Neutrophils (%) (Auto) 74.9 % Lymphocytes (%) (Auto) 9.8 % Monocytes (%) (Auto) 9.7 % Eosinophils (%) (Auto) 5.0 % Basophils (%) (Auto) 0.6 % Neutrophils # (Auto) 5.8 TH/MM3 Lymphocytes # (Auto) 0.8 TH/MM3 Monocytes # (Auto) 0.8 TH/MM3 Eosinophils # (Auto) 0.4 TH/MM3 Basophils # (Auto) 0.0 TH/MM3 CBC Comment DIFF FINAL Differential Comment Assessment and Plan Problem List: (1) Atrial fibrillation with RVR ICD Codes: I48.91 - Unspecified atrial fibrillation Status: Acute (2) Elevated troponin ICD Codes: R74.8 - Abnormal levels of other serum enzymes (3) ESRD on hemodialysis ICD Codes: N18.6 - End stage renal disease; Z99.2 - Dependence on renal dialysis Assessment and Plan 1) Afib with RVR New onset Heart rates controlled CHADSVASc = 2 Hgb stable, start on Eliquis 2) Elevated troponin MPI negative for ischemia 3) 2D echo pending If no problems on echo, can be discharged Reji Fabian DO March 11, 2018 13:04
--- NOTE | 2018-03-11 14:13 | HHI.NPPN ---
Subjective History of Present Illness 57-year-old with atrial fibrillation with RVR, ESRD on Saturday dialysis Objective Data Data Vital Signs Date Time Temp Pulse Resp B/P (MAP) Pulse Ox O2 Delivery O2 Flow Rate FiO2 03/11/18 11:50 97.9 69 18 123/57 (79) 95 03/11/18 10:54 21 03/11/18 08:00 72 03/11/18 07:50 97.8 82 18 134/65 (88) 94 03/11/18 07:00 Room Air 03/11/18 05:30 94 03/11/18 04:46 98.6 76 16 111/56 (74) 91 03/11/18 03:52 70 03/11/18 00:30 98.4 73 16 112/55 (74) 91 03/11/18 00:01 72 03/10/18 20:35 Room Air 03/10/18 20:04 76 03/10/18 19:47 98.1 74 16 118/58 (78) 93 03/10/18 17:23 95 21 03/10/18 16:00 68 -: 03/11/18 1109 03/09/18 0435 Physical Exam General Appearance: Well Developed, Well Nourished Neck Neck Exam: Neck Supple Pulmonary Resp Exam: Clear Bilaterally, Breath Sounds Equal Cardiology CV Exam: Arrhythmia Gastrointestinal/Abdomen GI Exam: Soft, Non-Tender, Bowel Sounds Present Extremeties Extremities Exam: Moderate Edema Assessment/Plan Problem List: (1) ESRD on hemodialysis ICD Codes: N18.6 - End stage renal disease; Z99.2 - Dependence on renal dialysis Plan: Hemodialysis plan for tomorrow continue Saturday schedule Continue to monitor A. fib had a stress test done, negative HD 1 L off today (2) Atrial fibrillation with RVR ICD Codes: I48.91 - Unspecified atrial fibrillation Status: Acute Plan: Rate is better controlled Anamika Ch MD March 11, 2018 14:13
--- NOTE | 2018-03-11 17:20 | ECHRPT ---
Indication: Persistent atrial fibrillation CONCLUSIONS The left ventricular systolic function is mildly reduced with an estimated ejection fraction in the range of 45- 50%. Wall thickness is measured at the upper limits of normal. Normal left ventricular size. The left atrial size is mildly dilated. There is mild tricuspid valve regurgitation. The estimated pulmonary arterial pressure is 37 mmHg. Mild mitral valve regurgitation. BP: 123 / 65 HR: 87 Rhythm: Sinus MEASUREMENTS (Male / Female) Normal Values Technical Quality:Fair 2D ECHO LV Diastolic Diameter PLAX 4.0 cm 4.2 - 5.9 / 3.9 - 5.3 cm LV Systolic Diameter PLAX 3.3 cm IVS Diastolic Thickness 1.0 cm 0.6 - 1.0 / 0.6 - 0.9 cm LVPW Diastolic Thickness 1.0 cm 0.6 - 1.0 / 0.6 - 0.9 cm LV Relative Wall Thickness 0.5 LVOT Diameter 2.3 cm M-MODE Aortic Root Diameter MM 3.3 cm LA Systolic Diameter MM 4.7 cm LA Ao Ratio MM 1.4 AV Cusp Separation MM 2.2 cm DOPPLER AV Peak Velocity 99.5 cm/s AV Peak Gradient 4.0 mmHg LVOT Peak Velocity 83.9 cm/s LVOT Peak Gradient 2.8 mmHg AV Area Cont Eq pk 3.5 cm MR Peak Velocity 373.0 cm/s MR Peak Gradient 55.7 mmHg Mitral E Point Velocity 139.0 cm/s Mitral A Point Velocity 62.9 cm/s Mitral E to A Ratio 2.2 LV E' Lateral Velocity 7.6 cm/s Mitral E to LV E' Lateral Ratio 18.3 LV E' Septal Velocity 4.8 cm/s Mitral E to LV E' Septal Ratio 29.1 TR Peak Velocity 259.0 cm/s TR Peak Gradient 26.8 mmHg PV Peak Velocity 71.9 cm/s PV Peak Gradient 2.1 mmHg FINDINGS LEFT VENTRICLE The left ventricular systolic function is mildly reduced with an estimated ejection fraction in the range of 45- 50%. Wall thickness is measured at the upper limits of normal. Normal left ventricular size. RIGHT VENTRICLE Normal right ventricular size and systolic function. LEFT ATRIUM The left atrial size is mildly dilated. RIGHT ATRIUM The right atrial size is normal. ATRIAL SEPTUM Normal atrial septal thickness without atrial level shunting by limited color doppler interrogation. AORTA The aortic root and proximal ascending aorta are normal in size on limited imaging. MITRAL VALVE Mild mitral valve regurgitation. AORTIC VALVE Trileaflet aortic valve. No aortic valve stenosis or regurgitation. TRICUSPID VALVE There is mild tricuspid valve regurgitation. The estimated pulmonary arterial pressure is 37 mmHg. PULMONARY VALVE The pulmonary valve is not well visualized. VESSELS The inferior vena cava is normal in size. PERICARDIUM No pericardial effusion. Gabriel Pollack MD, FACC, [facility] [place] (Electronically Signed) Final Date:11 Mar 2018 17:19
[2018-03-11] MEDS: HEPARIN SODIUM - IV 10,000 UNITS/10 ML VIAL PRN (17:53)
[2018-03-11] MEDS: GENTAMICIN SULFATE 20 MG/2 ML VIAL OTHER PRN (17:53)
[2018-03-12] MEDS ORDERED: APIX5TAB PO (11:59)
== END 2018-03-11 19:35 | DRG 308 ==
LOC: NEPC 15:54 → NEDA 19:22 → N04A 20:42 → N04B 03-10 08:29 → N04A 03-10 08:32
PROVIDERS: ADMIT Hospitalist; ATTEND Hospitalist
PROC: 5A1D70Z Performance of Urinary Filtration, Intermittent, Less than 6 Hours Per Day (ICD-10-PCS; principal; 2018-03-09)
DX: I48.91 Unspecified atrial fibrillation (principal); N18.6 End stage renal disease; J90 Pleural effusion, not elsewhere classified; I13.11 Hypertensive heart and chronic kidney disease without heart failure, with stage 5 chronic kidney disease, or end stage renal disease; E11.22 Type 2 diabetes mellitus with diabetic chronic kidney disease; R74.8 Abnormal levels of other serum enzymes; E78.00 Pure hypercholesterolemia, unspecified; F32.9 Major depressive disorder, single episode, unspecified; Z99.2 Dependence on renal dialysis; Z79.899 Other long term (current) drug therapy; Z99.3 Dependence on wheelchair
CPT/HCPCS: 71046; 78452; 80048; 80053; 80061; 82550; 82552; 82948; 83036; 83735; 84484; 85025; 85610; 85730; 90935; 93005; 93017; 93306; 96374; A9502; J1580; J1644; J1815; J2785; J7030